=== PATIENT | male | born 1995 | race Caucasian/White ===

== ENCOUNTER 2022-09-28 09:15 | Outpatient (CLI) | payer OTHER, SELFPAY ==
[2022-09-28 13:47] LABS: Chloride* 105 mmol/L (96-114); Potassium* 3.9 mmol/L (3.6-5.1); Sodium* 142 mmol/L (135-149)
[2022-09-28 13:50] LABS: Blood Urea Nitrogen* 17 mg/dL (5-24); Carbon Dioxide* 28 mmol/L (20-32); Cholesterol* 187 mg/dL (90-199); Creatinine* 0.9 mg/dL (0.5-1.5); Estimated Glomerular Filt Rate 119 ml/min
[2022-09-28 13:51] LABS: Calcium* 8.6 mg/dL (8.4-10.6); Glucose* 115 mg/dL (60-115); HDL Cholesterol* 33 mg/dL (>=40); LDL Cholesterol Calculated 117 mg/dL (<100); Triglycerides* 185 mg/dL (40-149)
== END 2022-09-28 09:16 | disposition home or self-care (01) ==
PROVIDERS: PCP Family Medicine; Visit Provider Family Medicine
DX: I10 Essential (primary) hypertension (principal); E11.9 Type 2 diabetes mellitus without complications
CPT/HCPCS: 80048; 80061

== ENCOUNTER 2023-06-16 10:14 | Outpatient (REF) | payer OTHER, SELFPAY ==
[2023-06-17 19:27] LABS: Zonisamide Quantitative 5 ug/mL (10-40)
== END 2023-06-16 10:15 | disposition home or self-care (01) ==
LOC: NPINS 10:14
PROVIDERS: PCP Family Medicine; Visit Provider Psychiatry & Neurology Neurology
DX: Z00.00 Encounter for general adult medical examination without abnormal findings (principal); I10 Essential (primary) hypertension; E11.9 Type 2 diabetes mellitus without complications; Z13.9 Encounter for screening, unspecified
CPT/HCPCS: 80048; 80203

== ENCOUNTER 2024-02-21 10:45 | Outpatient (CLI) | payer OTHER, SELFPAY ==
--- OUTSIDE RECORDS SUMMARY | 2024-02-21 10:50 | XMS_ITS | Clinical Summary ---
Author Organization [facility] Address [place], [place] [address] Care Team Providers Care Quality Assurance Supervisor Final Name Role Phone Fredy Read MD Primary Care Provider + Allergies No known active allergies Medications Medication Sig Dispensed Refills Start Date End Date Status ranitidine (ZANTAC) 150 mg tabletIndications:Julián roesophageal reflux disease with esophagitis Take 1 tablet by mouth once daily. 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 12 tablet 03/17/2019 Active metoprolol succinate (TOPROL XL) 50 mg sustained-release tablet 10/07/2019 Active triamcinolone (ARISTOCORT; KENALOG) 0.1 % creamIndications:Conta ct dermatitis, unspecified contact dermatitis type, unspecified trigger Apply topically to affected area(s) 3 times daily. 80 g 12/25/2019 Active Active Problems Problem Noted Date Diagnosed Date Migraine syndrome 09/30/2018 Gastroesophageal reflux disease without esophagi tis 11/20/2015 Ichthyosis 03/10/2008 Immunizations Name Administration Dates Next Due AMB Influenza, IIV3 (Age >=3 years)(Flu Clinic Only) 04/26/2008 AMB Influenza, IIV4 PF (=>6 mos Flulaval,Fluzone Fluarix)(Flu Clinic Only) 04/02/2015 DTaP 10/18/1999, 6,03/17/1995,01/03,1994 HIB PRP-OMP (PedvaxHIB) 01/01/1996,03/17,01/03/1995,10/27 Hepatitis A (Adult) 08/29/2014,10/04/2013 Hepatitis B (Peds) 07/12/1995,1994, 995 Influenza A (H1N1), Inactivated 06/04/2009 Influenza, IIV3 (Age >=3 years) 04/21/20 13,04/26/2008,04/28/2007,05/21 Influenza, IIV4 04/27/2017,05/02/2014 Influenza, IIV4 (=>6mos) MDV 03/03/2016 MENINGOCOCCAL VACCINE 2 VIAL 2MO-55YO (MENVEO) 10/04/2013 MMR 10/18/1999,01/01/1996 Meningococcal Vaccine (Menactra) 04/03/2006 Oral Polio Vaccine 10/18/1999, 5,01/03/1995,10/27 Td, Preservative Free (age >= 7 Years) 7 Tdap 04/03/2006 Family History Medical History Relation Name Comments Hypertension Father Williams Hyperlipidemia Maternal Grandfather Hypertension Maternal Grandfather Stroke Maternal Grandfather Relation Name Status Comments Father Williams Maternal Grandfather Social History Tobacco Use Types Packs/Day Years Used Date Smoking Tobacco: Passive Smo ke Exposure - Never Smoker Smokeless Tobacco: Never Tobacco Cessation:Counseling Given: No Comments:mom smokes Alcohol Use Standard Drinks/Week Comments Yes 0 (1 standard drink = 0.6 oz pur e alcohol) occassional 1 drink per month PHQ-2 Answer Date Recorded PHQ-2 Score 1 09/27/2018 Social Connections Answer Date Recorded Frequency of Communication with Friends and Fami ly Not on file 06/19/2021 Financial Resource Strain Answer Date R ecorded Difficulty of Paying Living Expenses Not on file 06/19/2021 Difficulty of Paying Living Expenses Not on file 06/19/2021 Sex and Gender Information Value Date Recorded Sex Assigned at Not on file Gender Identity Not on file Sexual Orientation Not on file Obstetrics History Last Filed Vital Signs Vital Sign Reading Time Taken Comments Blood Pressure 152/87 12/25/2019 10:08 AM CDT Pulse 80 12/25/2019 10:08 AM CDT Temperature 37.1 ??C (98.7 ??F) 12/25/2019 1 0:08 AM CDT Respiratory Rate 18 12/25/2019 10:0 8 AM CDT Oxygen Saturation 97% 12/25/2019 10: 08 AM CDT Inhaled Oxygen Concentration - - Weight 115.2 kg (254 lb) 12/25/2019 10: 08 AM CDT Height 181.6 cm (5' 11.5) 03/18/2019 1 :55 AM CDT transferred from last recorded ht on file Body Mass Index 34.93 03/18/2019 1:55 AM CDT Plan of Treatment Health Maintenance Due Date Last Done Comments HIV for age 15-65 2009 Hepatitis C screening for age 18-79 2012 BMI (ht and wt on same day) for age 18+ 09/28/2019 09/27/2018, 04/18/2018, 06/02/2016, Additional history exists Depression screening for age 12+ 11/16/2019 11/15/2018, 09/27/2018, 11/20/2015 COVID-19 vaccine series ( season) 2024 09/23/2020, 08/26/2020 Influenza for age 9-49 02/18/2024 7, 03/03/2016, 04/02/2015, Additional history exists Tetanus booster 04/27/2027 04/27/2017, 04/03/2006 Tdap Completed 04/03/2006 Pneumococcal series for age 6-64 Aged Out No longer eligible based on patient's age to complete this topic Care Teams Quality Assurance Supervisor Final Relationship Specialty Start Date End Date Fredy Read MD [address] [place] [address] PCP - General 11/29/05
== END 2024-02-21 10:46 | disposition home or self-care (01) ==
PROVIDERS: PCP Family Medicine; Visit Provider Family Medicine
DX: I10 Essential (primary) hypertension (principal); Z13.220 Encounter for screening for lipoid disorders
CPT/HCPCS: 80048; 80061; 85025

== ENCOUNTER 2024-03-01 08:42 | Day surgery (SDC) | payer OTHER, SELFPAY ==
[2024-03-01] VITALS (13 sets, daily range): BP systolic 125–164; BP diastolic 8–88; PULSE 68–88; RESP 14–20; TEMP 36.2–36.8; O2SAT 87–100; BMI 34.0
--- OUTSIDE RECORDS SUMMARY | 2024-03-01 08:44 | XMS_ITS | Clinical Summary ---
Author Organization [facility] Address [place], [place] [address] Care Team Providers Care Truck Service Technician Name Role Phone Fredy Read MD Primary [...] age to complete this topic Care Teams Truck Service Technician Relationship Specialty Start Date End Date Fredy Read MD [address] [place] [address] PCP - General 11/29/05
[2024-03-01] MEDS: LACTATED RINGERS 1000 ML 1,000 ML 100 ML IV ×2 (09:30→12:03)
[2024-03-01] MEDS: SODIUM CHLORIDE 0.9 % (FLUSH) 10 ML SYRINGE IVF (09:38)
[2024-03-01] MEDS: COCAINE HCL 4 % 4 ML SOLUTION NOSTRIL-B (10:25)
[2024-03-01] MEDS: BUPIVACAINE 0.5 %/EPI 1:200K 30 ML INJECTION (10:25)
[2024-03-01] MEDS: MUPIROCIN 1 GM PACKET 1 APPLIC TOPICAL (10:25)
[2024-03-01] MEDS: AYR SALINE NASAL GEL 1 APPLIC NOSTRIL-B (10:36)
--- NOTE | 2024-03-01 10:42 | P.ENTPROC_ITS ---
Procedure Note Date of procedure: 03/01/24 Procedure: Preoperative diagnosis nasal obstruction deviated septum, right inferior turbinate hypertrophy Postoperative diagnosis same Procedure nasal septoplasty, submucous partial resection right inferior turbinate Under general trach anesthesia patient was prepped draped usual fashion the nose decongested injected. A right hemitransfixion incision was made left anterior and posterior tunnels were created. A vertical incision was made through the cartilage and a right posterior tunnel created. The left area 4 impaction was resected 2 pieces 1 of cartilage 1 of bone were trimmed returned to intraseptal space. The hemitransfixion was closed with 2 4-0 chromic sutures A stab incision was made in the anterior of the right inferior turbinate and a tunnel created with a [place] dissector. The billy bone was outfractured and a conservative anterior submucous resection performed. The Coblation was used for hemostasis and to cauterize intramurally along the inferior 10%. Silastic stents were secured with 3-0 nylon and Merocel packing was placed above the stents on each side. The patient procedure well was taken recovery in satisfactory condition. Blood loss was less than 20 mL. Surgeon: Jonathan Sykes MD
--- NOTE | 2024-03-01 10:55 | W.ANESCHARGE ---
Anesthesia Charges Start Date/Time Anesthesia Start Date: 03/01/24 Anesthesia Start Time: 10:12 Stop Date/Time Anesthesia Stop Date: 03/01/24 Anesthesia Stop Time: 10:54
[2024-03-01] MEDS: fentaNYL 100 MCG/2 ML inj 50 MCG IVP (11:00)
--- NOTE | 2024-03-01 11:07 | W.ANESCHARGE ---
Anesthesia Charges Start Date/Time Anesthesia Start Date: 03/01/24 Anesthesia Start Time: 10:12 Stop Date/Time Anesthesia Stop Date: 03/01/24 Anesthesia Stop Time: 10:54
--- NOTE | 2024-03-01 11:31 | SUR.PHASEI ---
Patient awake and talking, pain level is now a one. Patient meets discharge criteria for PACU.
[2024-03-01] MEDS: ACETAMINOPHEN 325 MG TABLET PO (12:02)
[2024-03-01] MEDS: IBUPROFEN 200 MG TABLET PO (12:02)
== END 2024-03-01 13:04 | disposition home or self-care (01) ==
PROVIDERS: PCP Family Medicine; Visit Provider Otolaryngology
PROC: (CPT 30520; principal; 2024-03-01 10:00)
DX: J34.2 Deviated nasal septum (principal); J34.3 Hypertrophy of nasal turbinates; E11.9 Type 2 diabetes mellitus without complications; I10 Essential (primary) hypertension; G47.33 Obstructive sleep apnea (adult) (pediatric); Z79.84 Long term (current) use of oral hypoglycemic drugs
CPT/HCPCS: 30520; 30140; 00160; 82962; A9270; J0330; J1100; J2405; J2704; J3010; J3490; J7120

== ENCOUNTER 2024-08-19 08:56 | Outpatient (CLI) | payer BC, SELFPAY ==
[2024-08-21 23:58] LABS: Zonisamide Quantitative 4 ug/mL (10-40)
== END 2024-08-19 08:57 | disposition home or self-care (01) ==
LOC: NPINS 08:57
PROVIDERS: PCP Family Medicine; Visit Provider Psychiatry & Neurology Neurology
DX: G43.109 Migraine with aura, not intractable, without status migrainosus (principal)
CPT/HCPCS: 80203

== ENCOUNTER 2025-04-09 09:02 | Outpatient (CLI) | payer BC, SELFPAY | END 2025-04-09 09:03 | disposition home or self-care (01) | LOC: NFLDREF 04-12 16:13 | PROVIDERS: PCP Family Medicine; Referring Provider Family Medicine; Visit Provider Family Medicine | DX: E11.9 Type 2 diabetes mellitus without complications (principal) | CPT/HCPCS: 82043; 82570 ==